=== PATIENT | male | born 1970 | race Caucasian/White ===

== ENCOUNTER 2017-04-08 08:57 | Emergency (ER) | payer OTHER ==
[2017-04-08 09:05] VITALS: BP 123/83; PULSE 63; TEMP 97.6; BMI 22.1
[2017-04-08] MEDS ORDERED: KETOROLAC TROMETHAMINE 60 MG/2 ML VIAL ONE (09:48)
[2017-04-08] MEDS ORDERED: CYCLOBENZAPRINE HCL 10 MG TABLET (FP) PO ONE (09:49)
[2017-04-08] MEDS ORDERED: KETOROLAC TROMETHAMINE 60 MG/2 ML VIAL IM ONE (09:49)
[2017-04-08] MEDS ORDERED: CYCLOBENZAPRINE HCL 10 MG TABLET (FP) ONE (09:49)
--- NOTE | 2017-04-08 09:54 | PDOC ---
History of Present Illness - General Chief Complaint: Back Pain Stated Complaint: LOWER BACK/LEG PAIN Time Seen by Provider: 04/08/17 09:08 History Source: Patient Exam Limitations: No Limitations - History of Present Illness Initial Comments: 04/08/17 09:50 Back pain. States intermittent on and off for the past 3 weeks, but states is progressively getting worse where he has shooting numbness and pain down bilateral legs. States started on the right than the left. Denies any problems with bowel or bladder, denies any fever or urinary complaints. No history of kidney stones. Has not used any medication or treatment for relief of same. Has not sought medical attention for same. Occurred: reports: last week Severity: reports: mild, moderate Pain Location: reports: back Method of Injury: Yes: unknown Loss of Consciousness: no loss of consciousness Associated Symptoms (Fall): denies symptoms Past History - Travel Traveled outside of the country in the last 30 days: No Close contact w/someone who was outside of country & ill: No - Past Medical History Allergies/Adverse Reactions: Allergies Allergy/AdvReac Type Severity Reaction Status Date / Time No Known Allergies Allergy Verified 04/08/17 09:03 Home Medications: Ambulatory Orders Cyclobenzaprine HCl [Flexeril 10 mg] 10 mg PO BID PRN #14 tablet 04/08/17 - Surgical History Lung Surgery: Yes (pneumothroax repair) - Psycho/Social/Smoking Cessation Hx Anxiety: No Suicidal Ideation: No Smoking Status: No Smoking History: Never smoked Have you smoked in the past 12 months: No Number of Cigarettes Smoked Daily: 0 Information on smoking cessation initiated: No Hx Alcohol Use: No Drug/Substance Use Hx: No Substance Use Type: None Review of Systems - Review of Systems Able to Perform ROS?: Yes Is the patient limited Lao proficient: Yes Constitutional: Yes: Symptoms Reported, See HPI, Malaise. No: Fever, Loss of Appetite HEENTM: No: Symptoms Reported Respiratory: Yes: See HPI. No: Symptoms reported, Cough ABD/GI: Yes: See HPI. No: Symptoms Reported, Constipated, Diarrhea : Yes: See HPI. No: Symptoms Reported, Burning, Dysuria Musculoskeletal: Yes: Symptoms Reported, See HPI, Back Pain, Muscle Weakness Integumentary: Yes: See HPI. No: Symptoms Reported, Rash Neurological: Yes: Symptoms reported, See HPI, Paresthesia (bilateral legs) All Other Systems: Reviewed and Negative *Physical Exam - Vital Signs Last Vital Signs Temp Pulse Resp BP Pulse Ox 97.6 F 63 18 123/83 99 04/08/17 09:03 04/08/17 09:03 04/08/17 09:03 04/08/17 09:03 04/08/17 09:03 - Physical Exam General Appearance: Yes: Nourished, Appropriately Dressed, Apparent Distress, Mild Distress (stands favoring left side) HEENT: positive: SENAIT, Normal ENT Inspection, TMs Normal, Pharynx Normal Neck: positive: Supple. negative: Tender Respiratory/Chest: positive: Normal Breath Sounds Cardiovascular: negative: Regular Rhythm Gastrointestinal/Abdominal: positive: Normal Bowel Sounds, Soft. negative: Tender Musculoskeletal: positive: Normal Inspection, Decreased Range of Motion, Muscle Spasm. negative: CVA Tenderness, Vertebral Tenderness (has no true bone tenderness, tenderness is reproduced in the lower paravertebral spinous muscles or lateral L5-S1 area. Able to bend at waist to approximately 45 but pain reproduced with bending past. Denies numbness or tingling to hands or feet,) Extremity: positive: Normal Capillary Refill, Normal Inspection, Normal Range of Motion. 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, Fully Oriented, Alert, Normal Mood/ Affect, Normal Response, Motor Strength 5/5 *DC/Admit/Observation/Transfer Diagnosis at time of Disposition: Low back strain Qualifiers: Encounter type: initial encounter Qualified Code(s): S39.012A - Strain of muscle, fascia and tendon of lower back, initial encounter - Discharge Dispostion Disposition: HOME Condition at time of disposition: Stable Admit: No - Prescriptions Prescriptions: Cyclobenzaprine HCl [Flexeril 10 mg] 10 mg PO BID PRN #14 tablet PRN Reason: spasm - Patient Instructions Printed Discharge Instructions: DI for Back Strain or Sprain Additional Instructions: Rest, no heavy lifting or exercise until pain is resolved Hot soaks to neck and low back as often as possible/hot showers or Jacuzzis No massage or therapy until spasm is gone Continue ibuprofen 2-200 mg tablets every 6 hours for the next 3 days then as needed for pain and swelling Cyclobenzaprine 1-10mg every 8 hours as needed for spasm If not significant improvement within 24 hours with medication and rest regime, followup with private physician for change in medications and /or therapy. - Post Discharge Activity Work/School Note: Back to Work
== END 2017-04-08 09:57 | disposition home or self-care (01) ==
LOC: JERFT 08:57
PROC: 3E0233Z Introduction of Anti-inflammatory into Muscle, Percutaneous Approach (ICD-10-PCS; principal; 2017-04-08)
DX: S39.012A Strain of muscle, fascia and tendon of lower back, initial encounter (principal); X58.XXXA Exposure to other specified factors, initial encounter; Y93.89 Activity, other specified; Y92.89 Other specified places as the place of occurrence of the external cause
CPT/HCPCS: 99281-25

== ENCOUNTER 2017-06-05 09:11 | Day surgery (SDC) | payer OTHER ==
[2017-06-03 16:01] VITALS: BMI 22.4
[2017-06-05] MEDS ORDERED: methylPREDNISolone ACET (DEPO) 80 MG/1 ML VIAL ONE (09:34)
[2017-06-05] MEDS ORDERED: BUPIVACAINE HCL/PF 0.25% (2.5MG/ML) 10 ML VIAL ONE (09:34)
[2017-06-05 09:39] VITALS: TEMP 97.8
[2017-06-05] MEDS ORDERED: MIDAZOLAM HCL 2 MG/2 ML SINGLE DOSE VIAL ONE ×3 (10:35)
[2017-06-05] MEDS ORDERED: LIDOCAINE HCL 1%, 10 MG/ML (20ML VIAL) IJ ONE (10:55)
[2017-06-05] MEDS ORDERED: BUPIVACAINE HCL/PF 0.25% (2.5MG/ML) 10 ML VIAL IJ ONE (10:55)
[2017-06-05] MEDS ORDERED: methylPREDNISolone ACET (DEPO) 80 MG/1 ML VIAL IJ ONE (10:55)
[2017-06-05 11:55] VITALS: BP 119/63; PULSE 63
--- NOTE | 2017-06-06 11:45 | OP ---
DATE OF OPERATION: 06/05/2017 PREOPERATIVE DIAGNOSIS: Lumbar degenerative disk disease with foraminal stenosis and left lower extremity radiculopathy, L4-5. POSTOPERATIVE DIAGNOSIS: Lumbar degenerative disk disease with foraminal stenosis and left lower extremity radiculopathy, L4-5. ATTENDING SURGEON: Rafael Calabrese MD PROCEDURE: 1. Left L4-5 epidural steroid injection. 2. Intraoperative fluoroscopy. ANESTHESIA: Local with IV sedation. ANESTHESIOLOGIST: Dr. Farmer INDICATION: The patient is a 46-year-old male with back pain and lumbar radiculopathy. Because of intractable symptoms and failure of conservative treatment, he is here for the second epidural steroid injection. The first injection helped him for about a couple weeks, but his pain has now recurred. The risks of the procedure included, but were not limited to, bleeding, infection, spinal headache, and neurological injury. The patient understands indication for the procedure, procedure in detail, risks and benefits and alternatives for treatment of his lumbar condition and wishes to proceed. No guarantees were given for a favorable outcome. PROCEDURE IN DETAIL: After the patient was taken to the operating room, he was placed in prone position with a pillow under his hips and lower leg. Lumbar region was cleaned with alcohol and prepped with Betadine. A skin wheal was raised with 5 mL of 1% Xylocaine. A 22-gauge spinal needle was inserted under AP and lateral fluoroscopic guidance. From a left-sided approach to L4-5. [id number] technique was utilized, and there was no CSF or blood backflow. Depo-Medrol 80 mg and 1 mL of 0.25% Marcaine were injected. The needle was withdrawn. Sterile bandage was applied. The patient tolerated the procedure well and was returned back to supine position, moving bilateral extremities well. He did not complain of headache. RAFAEL CALABRESE M.D. [id number]
== END 2017-06-05 12:18 | disposition home or self-care (01) ==
LOC: JASU-SURG 09:11
PROVIDERS: ATTEND Neurological Surgery
PROC: 3E0R3CZ (ICD-10-PCS; 2017-06-05)
PROC: B01BYZZ Fluoroscopy of Spinal Cord using Other Contrast (ICD-10-PCS; 2017-06-05)
PROC: 3E0R33Z Introduction of Anti-inflammatory into Spinal Canal, Percutaneous Approach (ICD-10-PCS; principal; 2017-06-05 10:30)
DX: M51.16 Intervertebral disc disorders with radiculopathy, lumbar region (principal); M48.06 Spinal stenosis, lumbar region
CPT/HCPCS: 76000-TC

== ENCOUNTER 2017-11-20 06:24 | Day surgery (SDC) | payer OTHER ==
[2017-11-15 10:11] VITALS: BMI 21.7
[~2017-11-20 06:24] MED LIST: BUPIVACAINE HCL/PF 0.25% (2.5MG/ML) 10 ML VIAL IJ ONE; LIDOCAINE HCL 1% PRESERVATIVE FREE - 30ML VIAL IJ ONE; methylPREDNISolone ACET (DEPO) 80 MG/1 ML VIAL IJ ONE
[2017-11-20 06:44] VITALS: TEMP 97.5
[2017-11-20] MEDS ORDERED: methylPREDNISolone ACET (DEPO) 80 MG/1 ML VIAL ONE (07:51)
[2017-11-20] MEDS ORDERED: BUPIVACAINE HCL/PF 0.25% (2.5MG/ML) 10 ML VIAL ONE (07:52)
[2017-11-20] MEDS ORDERED: LIDOCAINE HCL/PF 2% SDV 5ML VIAL ONE (08:06)
[2017-11-20] MEDS ORDERED: PROPOFOL 20 ML ONE (08:06)
[2017-11-20] MEDS ORDERED: methylPREDNISolone ACET (DEPO) 80 MG/1 ML VIAL IJ ONE (08:11)
[2017-11-20] MEDS ORDERED: LIDOCAINE HCL 1% PRESERVATIVE FREE - 30ML VIAL IJ ONE ×2 (08:11)
[2017-11-20] MEDS ORDERED: BUPIVACAINE HCL/PF 0.25% (2.5MG/ML) 10 ML VIAL IJ ONE (08:11)
--- NOTE | 2017-11-20 08:38 | OP ---
DATE OF OPERATION: 11/20/2017 PREOPERATIVE DIAGNOSIS: L4-5 herniated disk with lower back pain and left lower extremity radiculopathy. POSTOPERATIVE DIAGNOSIS: L4-5 herniated disk with lower back pain and left lower extremity radiculopathy. PROCEDURE: 1. Left L4-5 epidural sternoid injection. 2. Intraoperative fluoroscopy. SURGEON: Rafael Calabrese MD ANESTHESIA: Local with IV sedation. ANESTHESIOLOGIST: Carleen Vora MD INDICATION: The patient is a 46-year-old male with recurrent lower back pain and left lower extremity radiculopathy. Because of intractable symptoms and failure of conservative treatment, he is here for the first epidural steroid injection. In the ER he had previously received epidural steroid injection with improvement in his symptomatology. The risks of the procedure included but are not limited to bleeding, infection, spinal headache and neurological injury. The patient understood the indication for the procedure, the procedure in detail, risks and benefits and alternative treatments for his lumbar condition and wished to procedure. No guarantees were given for favorable outcome. PROCEDURE IN DETAIL: The patient was taken to the operating room and he was placed in the prone position with a pillow under his hips. The lumbar region was cleansed with alcohol and painted with Betadine. A 22-gauge spinal needle was inserted under AP and lateral fluoroscopic guidance from a left-sided approach at L4-5. [id number] technique was utilized and there was no CSF or blood backflow and 80 mg of Depo-Medrol and 1 mL of 0.25% Marcaine was injected. The needle was withdrawn. Sterile bandage was applied. The patient tolerated the procedure well. He was returned to the supine position and moving bilateral lower extremities well. He did not complain of headache. RAFAEL CALABRESE M.D. [id number]
[2017-11-20 09:34] VITALS: BP 124/79; PULSE 80
== END 2017-11-20 09:45 | disposition home or self-care (01) ==
LOC: JASU-SURG 06:24
PROVIDERS: ATTEND Neurological Surgery
PROC: 3E0S33Z Introduction of Anti-inflammatory into Epidural Space, Percutaneous Approach (ICD-10-PCS; 2017-11-20)
PROC: B01BZZZ Fluoroscopy of Spinal Cord (ICD-10-PCS; 2017-11-20)
PROC: 3E0S3BZ Introduction of Anesthetic Agent into Epidural Space, Percutaneous Approach (ICD-10-PCS; principal; 2017-11-20 08:00)
DX: M51.16 Intervertebral disc disorders with radiculopathy, lumbar region (principal)
CPT/HCPCS: 76000-TC

== ENCOUNTER 2021-12-09 14:58 | Emergency (ER) | payer BC ==
[2021-12-09 15:04] VITALS: BP 129/74; PULSE 69; TEMP 97.4; BMI 22.4
[2021-12-09] MEDS ORDERED: LIDOCAINE HCL 2% JELLY 10 ML CARTRIDGE ONE (15:32)
[2021-12-09] MEDS ORDERED: LIDOCAINE HCL 2% JELLY 10 ML CARTRIDGE UR ONE (15:51)
[2021-12-09] MEDS ORDERED: SULFAMETHOXAZOLE/TRIMETHOPRIM 800MG/160MG D.S. TABLET PO ONE (15:51)
[2021-12-09] MEDS ORDERED: KETOROLAC TROMETHAMINE 30 MG/1 ML VIAL IM ONE (15:53)
[2021-12-09] MEDS ORDERED: KETOROLAC TROMETHAMINE 30 MG/1 ML VIAL ONE (16:02)
[2021-12-09] MEDS ORDERED: SULFAMETHOXAZOLE/TRIMETHOPRIM 800MG/160MG D.S. TABLET ONE ×2 (16:02→16:08)
== END 2021-12-09 17:43 | disposition home or self-care (01) ==
LOC: JER 14:58
PROC: 3E0233Z Introduction of Anti-inflammatory into Muscle, Percutaneous Approach (ICD-10-PCS; principal; 2021-12-09)
DX: R33.9 Retention of urine, unspecified (principal); R39.15 Urgency of urination; N39.0 Urinary tract infection, site not specified
CPT/HCPCS: 74176-TC; 81003; 87086; 99284-25

== ENCOUNTER 2022-06-01 04:12 | Day surgery (SDC) | payer BC ==
[2022-05-30 13:31] VITALS: BMI 22.4
[2022-06-01] MEDS ORDERED: PROPOFOL 20 ML ONE ×2 (09:36)
[2022-06-01] MEDS ORDERED: LIDOCAINE HCL 2% 100 MG/5 ML DISP.SYRIN ONE (09:36)
[2022-06-01] MEDS ORDERED: KETOROLAC TROMETHAMINE 30 MG/1 ML VIAL ONE (09:36)
[2022-06-01] MEDS ORDERED: MIDAZOLAM HCL 2 MG/2 ML SINGLE DOSE VIAL ONE (09:36)
[2022-06-01] MEDS ORDERED: DEXAMETHASONE SOD PHOSPHATE 4 MG/1 ML VIAL ONE (09:36)
[2022-06-01] MEDS ORDERED: ceFAZolin SODIUM 1 GM VIAL ONE (10:27)
[2022-06-01] MEDS ORDERED: LIDOCAINE HCL 2% JELLY 10 ML CARTRIDGE TP ONE (10:29)
[2022-06-01] MEDS ORDERED: ceFAZolin SODIUM 1 GM VIAL IVPB ONE (10:29)
[2022-06-01] MEDS ORDERED: LIDOCAINE HCL 2% JELLY 10 ML CARTRIDGE ONE (10:32)
[2022-06-01] MEDS ORDERED: PROMETHAZINE HCL 25 MG/1 ML VIAL IVPUSH PRN (10:53)
[2022-06-01] MEDS ORDERED: oxyCODONE HCL 5 MG TABLET PO PRN ×2 (10:53)
[2022-06-01] MEDS ORDERED: ONDANSETRON 4 MG/2 ML VIAL IVPUSH PRN (10:53)
[2022-06-01] MEDS ORDERED: LACTATED RINGERS SOLUTION 1,000 ML IV SCH (11:00)
[2022-06-01] MEDS ORDERED: ONDANSETRON 4 MG/2 ML VIAL ONE (11:09)
[2022-06-01 13:31] VITALS: TEMP 97.5
[2022-06-01 13:36] VITALS: BP 110/70; PULSE 84
== END 2022-06-01 12:40 | disposition home or self-care (01) ==
LOC: JASU-SURG 04:12
PROVIDERS: ATTEND Urology
PROC: 0TJB8ZZ Inspection of Bladder, Via Natural or Artificial Opening Endoscopic (ICD-10-PCS; principal; 2022-06-01 10:00)
DX: N40.1 Benign prostatic hyperplasia with lower urinary tract symptoms (principal)
CPT/HCPCS: 94760